=== PATIENT | male | born 1965 | race Caucasian/White ===

== ENCOUNTER 2024-07-04 14:03 | Outpatient (CLI) | payer BC | END 2024-07-04 14:04 | disposition home or self-care (01) | LOC: CSHRAD 14:03 | PROVIDERS: ATTEND Orthopaedic Surgery | DX: M54.50 Low back pain, unspecified (principal); M47.816 Spondylosis without myelopathy or radiculopathy, lumbar region; Z98.890 Other specified postprocedural states | CPT/HCPCS: 72100 ==